=== PATIENT | female | born 1995 | race Caucasian/White ===

== ENCOUNTER 2018-09-22 13:20 | Emergency (ER) | payer SELFPAY ==
--- NOTE | 2018-09-22 13:34 | ER Document Report ---
ED Medical Screen (RME) - General Chief Complaint: Cyst Stated Complaint: POSSIBLE CYST Time Seen by Provider: 09/22/18 13:30 Mode of Arrival: Ambulatory Information source: Patient Notes: patient presents to the emergency department with abscess under her left axilla for the past week. Reports history of pilonidal cyst. No complaints of fever vomiting diarrhea. abscess noted under left axilla I have greeted and performed a rapid initial assessment of this patient. A comprehensive ED assessment and evaluation of the patient, analysis of test results and completion of the medical decision making process will be conducted by additional ED providers. Dictation of this chart was performed using voice recognition software; therefore, there may be some unintended grammatical errors. - Related Data Allergies/Adverse Reactions: latex Allergy (Verified 09/22/18 13:22) Physical Exam - Vital signs Vitals: Temp Pulse Resp BP Pulse Ox 98.2 F 98 16 141/79 H 100 09/22/18 13:26 09/22/18 13:26 09/22/18 13:26 09/22/18 13:26 09/22/18 13:26 Course - Vital Signs Vital signs: Temp Pulse Resp BP Pulse Ox 98.2 F 98 16 141/79 H 100 09/22/18 13:26 09/22/18 13:26 09/22/18 13:26 09/22/18 13:26 09/22/18 13:26
[2018-09-22] MEDS ORDERED: DIAZEPAM 5 MG TABLET PO ONE (14:08)
[2018-09-22] MEDS ORDERED: IBUPROFEN 800 MG TABLET PO ONE (15:14)
--- NOTE | 2018-09-22 15:15 | ER Document Report ---
ED General - General Chief Complaint: Cyst Stated Complaint: POSSIBLE CYST Time Seen by Provider: 09/22/18 13:30 Mode of Arrival: Ambulatory Information source: Patient TRAVEL OUTSIDE OF THE [place] IN LAST 30 DAYS: No - HPI Patient complains to provider of: Axillary abscess Onset: Last week Onset/Duration: Sudden Quality of pain: Sharp Severity: Mild Pain Level: 2 Associated symptoms: denies: Chills, Fever, Nausea, Vomiting Exacerbated by: Denies Relieved by: Denies Similar symptoms previously: No Recently seen / treated by doctor: No Notes: 23-year-old female with left axillary abscess for about a week. Getting worse. History of pilonidal abscess in the past. Not diabetic. No fevers or chills. - Related Data Allergies/Adverse Reactions: latex Allergy (Verified 09/22/18 13:22) Past Medical History - General Information source: Patient - Social History Smoking Status: Unknown if Ever Smoked Drug Abuse: None Lives with: Spouse/Significant other Family History: Reviewed & Not Pertinent Patient has suicidal ideation: No Patient has homicidal ideation: No Renal/ Medical History: Denies: Hx Peritoneal Dialysis Review of Systems - Review of Systems Notes: Constitutional: No fevers. No chills. EENT: No eye redness. No eye pain. No ear pain. No sore throat. Cardiovascular: No chest pain. No palpitations. Respiratory: No cough. No shortness of breath. No respiratory distress. Gastrointestinal: No abdominal pain. No nausea, vomiting, or diarrhea. Genitourinary: Atraumatic. No lesions. No pain. No discharge. Musculoskeletal: Atraumatic. No swelling. No deformities. Skin: Positive for abscess left axilla Lymphatic: No swollen lymph nodes. Neurologic: No headache. No syncope. Psychiatric: No suicidal or homicidal ideation. Physical Exam - Vital signs Vitals: Temp Pulse Resp BP Pulse Ox 98.2 F 98 16 141/79 H 100 09/22/18 13:26 09/22/18 13:26 09/22/18 13:26 09/22/18 13:26 09/22/18 13:26 - Notes Notes: General: Well-developed, well-nourished. In no acute distress. Non-toxic appearing. Cardiac: Well-perfused. Regular rate and rhythm. No murmurs, rubs, or gallops. Pulmonary: No respiratory distress. No cyanosis. Bilateral lung fiels are clear to auscultation. Abdominal: Non-distended. Non-rigid. Bowels sounds are present in all four quadrants. No guarding or rebound. HEENT: Head is atraumatic. Conjunctivae not reddened. No tearing. PERRL. EOMI. Orbits atraumatic. No periorbital swelling or erythema. Oropharynx is without erythema, swelling, or exudates. Neck: Supple. No adenopathy. No meningismus. Dermatologic: Fluctuant tender erythematous pointing abscess left axilla diameter 1 cm. Tender to palpate. No crepitus Chest: Atraumatic. No chest wall tenderness to palpation. Musculoskeletal: Moves all extremities well. No range of motion deficits. no muscular or joint tenderness. No paraspinal muscle tenderness. no midline spinal tenderness or step-off. Genitourinary: Examination deferred Neurologic: No gross neurologic deficits. Psychiatric: Normal mood. Course - Vital Signs Vital signs: Temp Pulse Resp BP Pulse Ox 98.2 F 98 16 141/79 H 100 09/22/18 13:26 09/22/18 13:26 09/22/18 13:26 09/22/18 13:26 09/22/18 13:26 Procedures - Incision and Drainage LEFT AXILLA Time completed: 15:13 Type: Simple Anesthetic type: 1% Lidocaine mL's of anesthetic: 4 Blade size: 11 I&D procedure: Betadine prep applied Incision Method: Incision made by scalpel Amount/type of drainage: MODERATE PUS BLOOD SEBUM CYST WALL Notes: 09/22/18 15:14 Tolerated well. Discharge - Discharge Clinical Impression: Infected sebaceous cyst Condition: Good Disposition: HOME, SELF-CARE Instructions: Post Incision and Drainage, Abscess ([facility]) Prescriptions: Ibuprofen [Ibu] 800 mg PO Q8HP PRN #15 tablet PRN Reason: Sulfamethoxazole/Trimethoprim [Bactrim Ds Tablet] 1 each PO BID #20 tablet Referrals: [facility] [Provider Group] - Follow up as needed
[2018-09-22 15:31] VITALS: BP 135/83
== END 2018-09-22 15:27 | disposition home or self-care (01) ==
LOC: ER 13:20
DX: L72.3 Sebaceous cyst (principal); Z91.040 Latex allergy status
CPT/HCPCS: 99283